=== PATIENT | male | born 1995 | race Caucasian/White ===

== ENCOUNTER 2020-08-18 12:51 | Outpatient (CLI) | payer MEDICAID ==
[~2020-08-18] VITALS: Ht 172.7 cm; Wt 54.5 kg
[2020-08-18 13:05] VITALS: BP 132/74
--- NOTE | 2020-08-18 15:15 | Consultation ---
DATE OF CONSULTATION: 08/18/2020 CONSULTING PHYSICIAN: Yeison Foster MD CHIEF COMPLAINT: Complained of some abdominal pain on the right side, also white tongue. PAST MEDICAL HISTORY: No prior medical problems. PAST SURGICAL HISTORY: No surgeries. MEDICATIONS: No medications. FAMILY HISTORY: No family history of GI malignancies. SOCIAL HISTORY: Patient denies any tobacco, alcohol, or drug abuse. ALLERGIES: No known drug allergies. REVIEW OF SYSTEMS: Mainly positive for the right lower quadrant abdominal pain, but when after talking in more detail it actually seems like a testicular pain. Patient also complained of white tongue that gets worse with sugar usage and goes away. PHYSICAL EXAMINATION: VITAL SIGNS: Temperature 97.4, blood pressure 132/74, pulse 84, respirations 20. HEENT: Normocephalic, atraumatic. Sclerae, anicteric. NECK: Supple. No evidence of obvious lymphadenopathy. CARDIOVASCULAR: Regular rate and rhythm. Plus S1-S2. LUNGS: Decreased breath sounds bilaterally based on supine exam. ABDOMEN: Soft, nontender. No rebound. No guarding. No peritoneal sign. EXTREMITIES: No clubbing, no clubbing, no edema. ASSESSMENT AND PLAN: This is a 24-year-old male into the office for 2 reasons. One is the white tongue. On examination, the tongue actually does not look too much white to me. Apparently, patient was given antifungal in the past and he refused to take it. I recommended him given he has also complained of some mild throat pain to be seen by an ENT doctor, so they can do in the office laryngoscopy and to see if patient has evidence of any Rose infection in the back of his throat and that may be coming antifungal medication. In terms of testicular pain, patient was also told to see an urologist. Yeison Foster M.D. DR: BEN JOB#: [id number] CC:
== END 2020-08-18 14:51 | disposition home or self-care (01) ==
LOC: PAN 12:51
DX: R10.31 Right lower quadrant pain (principal); N50.819 Testicular pain, unspecified; R07.0 Pain in throat
CPT/HCPCS: G0463